=== PATIENT | female | born 2000 | race African-American/Black ===

== ENCOUNTER 2020-01-07 17:14 | Emergency (ER) | payer MEDICAID, OTHER ==
[~2020-01-07] VITALS: Ht 162.6 cm; Wt 70.3 kg
--- NOTE | 2020-01-07 17:46 | NUR ---
PT BIB RA C/O HAND TREMORS WHILE AT PSYCHOLOGIST APPOINTMENT, PT IS AAOX3 NON VERBAL DEF, NOT IN RESPIRATORY DISTRESS, HOOKED TO MONITOR, KEPT RESTED AND COMFORTABLE, WILL CONTINUE TO MONITOR.
--- NOTE | 2020-01-07 17:50 | NUR ---
SEEN AND EXAMINED BY KRITSY RODRIGUEZ
--- NOTE | 2020-01-07 18:00 | NUR ---
ER PHLEB AT BEDSIDE FOR BLOOD DRAW.
[2020-01-07 18:04] LABS: BASOPHILS # (AUTO) 0.1 /CMM (0.0-0.2); BASOPHILS % (AUTO) 0.7 % (0.0-2.0); EOSINOPHILS % (AUTO) 1.1 % (0.0-6.0); HEMATOCRIT 41 % (33-45); HEMOGLOBIN 13.2 g/dL (11.5-14.8); LYMPHOCYTES # (AUTO) 1.5 /CMM (0.8-4.8); LYMPHOCYTES % (AUTO) 19.5 % (20.0-44.0); MEAN CORPUSCULAR HGB CONC 32 g/dl (31.0-36.0); MEAN CORPUSCULAR VOLUME 91 fL (82-100); MONOCYTES # (AUTO) 0.6 /CMM (0.1-1.30); MONOCYTES % (AUTO) 8.3 % (2.0-12.0); NEUTROPHILS # (AUTO) 5.2 /CMM (1.8-8.9); NEUTROPHILS % (AUTO) 70.4 % (43.0-81.0); PLATELET COUNT (AUTO) 284 /CMM (150-450); RED BLOOD CELL COUNT(AUTO) 4.56 MIL/uL (4.0-5.2); WHITE BLOOD COUNT (AUTO) 7.4 K/uL (4.3-11.0)
[2020-01-07 18:13] LABS: CALCIUM, SERUM 9.1 mg/dL (8.5-10.1); CARBON DIOXIDE 29 mmol/L (21-32); CHLORIDE 103 mmol/L (98-107); CREATININE 0.9 mg/dL (0.6-1.3); GLUCOSE 116 mg/dL (74-106); SODIUM SERUM 139 mmol/L (136-145); UREA NITROGEN, BLOOD 13 mg/dL (7-18)
[2020-01-07 18:18] LABS: ALANINE AMINOTRANSFERASE 46 U/L (12-78); ALBUMIN 3.8 g/dL (3.4-5.0); ALCOHOL, BLOOD < 3 mg/dL (0-0); ALKALINE PHOSPHATASE 64 U/L (46-116); ASPARTATE AMINOTRANSFERASE 26 U/L (15-37); BILIRUBIN,TOTAL 0.1 mg/dL (0.2-1.0); SALICYLATE 2.1 mg/dL (2.8-20.0); TOTAL PROTEIN, SERUM 8.4 g/dL (6.4-8.2)
[2020-01-07 18:19] LABS: ACETAMINOPHEN 0 ug/ml (10-30)
[2020-01-07 18:24] LABS: APPEARANCE,URINE Clear (CLEAR); BILIRUBIN,URINE Negative (NEGATIVE); BLOOD, URINE Trace-intact Ery/uL (NEGATIVE); COLOR,URINE Yellow (YELLOW); KETONES,URINE Negative (NEGATIVE); LEUKOCYTE ESTERASE ,URINE Small (NEGATIVE); NITRITE, URINE Negative (NEGATIVE); PROTEIN,URINE Negative (NEGATIVE); UGLUCOSE Negative (NEGATIVE); UROBILINOGEN,URINE 0.2 EU/dL (0.2)
--- NOTE | 2020-01-07 18:30 | NUR ---
URINE SPECIMEN COLLECTED AND SENT TO LAB.
[2020-01-07 18:33] LABS: BACTERIA,URINE Few /HPF (None Seen); SQUAMOUS EPITHELIAL CELL,UR Few /HPF (None Seen); WBC,URINE TOO NUMEROUS TO COUN /HPF (0-3)
[2020-01-07] MEDS ORDERED: NITROFURANTOIN/NITROFURAN MAC 100 MG CAPSULE ONE (18:46)
--- NOTE | 2020-01-07 18:54 | NUR ---
CALLED [facility] FOR EVMANUEL.
[2020-01-07] MEDS ORDERED: NITROFURANTOIN/NITROFURAN MAC 100 MG CAPSULE PO ONE (19:00)
--- NOTE | 2020-01-07 19:13 | NUR ---
REPORT GIVEN TO DANILO RAMÍREZ FOR CK.
--- NOTE | 2020-01-07 22:27 | NUR ---
PT ACCEPTED TO [facility] BY DR VARELA, UNIT 2. # FOR REPORT [phone]
--- NOTE | 2020-01-07 22:37 | NUR ---
Gustavo andrade in ED - 01/07/20 at 2316 by BAILEY REPORT GIVEN TO JOSE M CARRASCO AT [facility] FOR CK.
--- NOTE | 2020-01-07 22:39 | NUR ---
CALLED [facility] FOR TRANSPORT [facility] #[id number]
[2020-01-07] MEDS ORDERED: ACETAMINOPHEN ES 500 MG TABLET ONE (23:06)
--- NOTE | 2020-01-07 23:16 | NUR ---
REPORT GIVEN TO CHAPITO CARRASCO FOR CK.
--- NOTE | 2020-01-07 23:24 | NUR ---
[facility] 0030
[2020-01-07] MEDS ORDERED: ACETAMINOPHEN ES 500 MG TABLET PO ONE (23:30)
[2020-01-07 23:57] VITALS: BP 139/75
--- NOTE | 2020-01-08 00:24 | NUR ---
REPORT GIVEN TO [facility] FOR CK. AND TRANSPORT RESPONSIBILITIES.
[2020-01-08] MEDS ORDERED: diphenhydrAMINE HCL 25 MG CAPSULE ONE (00:30)
[2020-01-08] MEDS ORDERED: diphenhydrAMINE HCL 25 MG CAPSULE PO ONE (01:00)
== END 2020-01-08 00:37 | disposition other institution (70) ==
LOC: ER 17:16
DX: R45.851 Suicidal ideations (principal); N39.0 Urinary tract infection, site not specified; G40.909 Epilepsy, unspecified, not intractable, without status epilepticus; R94.31 Abnormal electrocardiogram [ECG] [EKG]
CPT/HCPCS: 36415; 80048; 80076; 80305; 80307; 80329; 81001; 84703; 85025; 87086; 93005; 99285; G0480; Q0163; 81000-TC

== ENCOUNTER 2020-01-09 09:25 | Emergency (ER) | payer MEDICAID, OTHER ==
[~2020-01-09] VITALS: Ht 144.8 cm; Wt 58.1 kg
--- NOTE | 2020-01-09 09:31 | NUR ---
[id number] FRM SCHVN C/O "CHEST DISCOMFORT" AND "SOB." TO ER BED 10, HOOKED TO MONITOR, CHANGED TO HOSP GOWN, WARM BLANKET PROVIDED. AWAITING MD LACKEY. 1:1 SITTER AT BEDSIDE
--- NOTE | 2020-01-09 09:32 | NUR ---
DR TO AT BEDSIDE
[2020-01-09 09:56] LABS: BASOPHILS % (AUTO) 0.7 % (0.0-2.0); EOSINOPHILS % (AUTO) 1.1 % (0.0-6.0); HEMATOCRIT 42 % (33-45); HEMOGLOBIN 13.5 g/dL (11.5-14.8); LYMPHOCYTES # (AUTO) 1.5 /CMM (0.8-4.8); LYMPHOCYTES % (AUTO) 30.1 % (20.0-44.0); MEAN CORPUSCULAR HGB CONC 32 g/dl (31.0-36.0); MEAN CORPUSCULAR VOLUME 91 fL (82-100); MONOCYTES # (AUTO) 0.5 /CMM (0.1-1.30); NEUTROPHILS # (AUTO) 2.8 /CMM (1.8-8.9); NEUTROPHILS % (AUTO) 58.1 % (43.0-81.0); PLATELET COUNT (AUTO) 270 /CMM (150-450); RED BLOOD CELL COUNT(AUTO) 4.55 MIL/uL (4.0-5.2); WHITE BLOOD COUNT (AUTO) 4.9 K/uL (4.3-11.0)
[2020-01-09 10:05] LABS: CALCIUM, SERUM 9.3 mg/dL (8.5-10.1); CARBON DIOXIDE 30 mmol/L (21-32); CHLORIDE 103 mmol/L (98-107); GLUCOSE 83 mg/dL (74-106); SODIUM SERUM 139 mmol/L (136-145); UREA NITROGEN, BLOOD 11 mg/dL (7-18)
--- NOTE | 2020-01-09 12:08 | NUR ---
TEXTED DR. TAVARES FOR MRI APPROVAL.
--- NOTE | 2020-01-09 12:13 | NUR ---
MRI DOWN TODAY, MIGHT TAKE A DAY OR TWO TO FIX THE MACHINE, MADE AWARE
--- NOTE | 2020-01-09 12:23 | NUR ---
PATIENT WAS ABLE TO STAND UP WITH SMALL STEPS. ALSO VERBALIZED "NO PAIN" MD MADE AWARE.
[2020-01-09] MEDS ORDERED: LORAZEPAM INJ 2 MG/ML VIAL ONE (12:28)
[2020-01-09] MEDS ORDERED: LORAZEPAM INJ 2 MG/ML VIAL IV ONE (12:30)
[2020-01-09] MEDS ORDERED: HYDROCODONE/APAP 5/325MG 1 EACH TABLET PO ONE (13:30)
[2020-01-09] MEDS ORDERED: HYDROCODONE/APAP 5/325MG 1 EACH TABLET ONE (14:45)
[2020-01-09] MEDS ORDERED: IOHEXOL-350 100 ML VIAL IV ONE (16:16)
[2020-01-09] MEDS ORDERED: CT SWABBABLE VALVE TRANS SET 1 EA INFUS.SET MC ONE (16:16)
[2020-01-09] MEDS ORDERED: IV NS 0.9% 250 ML IV ONE (16:16)
--- NOTE | 2020-01-09 16:40 | NUR ---
WHEELED OUT VIA JEN FOR CTA
--- NOTE | 2020-01-09 17:46 | NUR ---
MOTHER LOREN HEATH CALLED AND LEFT # [phone]
--- NOTE | 2020-01-09 18:41 | NUR ---
CALLED [facility] FOR UPDATE TO SEE IF PT WILL BE ACCEPTED BACK AFTER SENDING PATIENT TO US. SPOKE WITH SAM AND SAID TO CALL REPORT AFTER 1930. THEN WE CAN SEND THE PATIENT. [facility] [phone].
--- NOTE | 2020-01-09 19:23 | NUR ---
REPORT GIVEN TO DARRELL CARRASCO FOR CK
--- NOTE | 2020-01-09 20:27 | NUR ---
REPORT GIVEN TO JOSE M CARRASCO AT [facility] FOR CK.
--- NOTE | 2020-01-09 20:41 | NUR ---
[facility] CALLED FOR [facility] #[id number] ETA ~[phone]
--- NOTE | 2020-01-09 21:42 | NUR ---
REPORT GIVEN TO TRANSPORT TEAM FOR CK. AND TRANSFERRING RESPONSIBILITIES.
[2020-01-09 21:43] VITALS: BP 134/75
== END 2020-01-09 21:43 | disposition home or self-care (01) ==
LOC: ER 09:26
DX: R07.89 Other chest pain (principal); R51 Headache; G40.909 Epilepsy, unspecified, not intractable, without status epilepticus
CPT/HCPCS: 36415; 70450; 71045; 71275; 72128; 72131; 80048; 84484; 84703; 85025; 85378; 93005 ×2; 96372; 99285; J2060; J7050; Q9967

== ENCOUNTER 2020-01-09 23:20 | Emergency (ER) | payer OTHER ==
[~2020-01-09] VITALS: Ht 147.3 cm; Wt 58.1 kg
--- NOTE | 2020-01-09 23:49 | NUR ---
PATIENT CAME TO ER BED 11 C/O NUMBNESS ON BOTH LEGS. PATIENT DENIES SUICIDAL IDEATION. STRONG AND EQUAL PEDAL PULSES BILATERALLY. ABLE TO FEEL SESNSATIONS ON BOTH LOWER EXTREMITIES. AAOX4. NO SOB. BREATHING EVENLY AND UNLABORED ON ROOM AIR. CONNECTED TO MONITOR.
[2020-01-09 23:53] VITALS: BP 119/75
--- NOTE | 2020-01-10 00:56 | NUR ---
[facility] CALLED FOR TRANSPORT #[id number] ETA [phone]
--- NOTE | 2020-01-10 02:58 | NUR ---
PATIENT IS AMBULATORY WITH STEADY GAIT.
--- NOTE | 2020-01-10 03:06 | NUR ---
Patient discharged to home in stable condition. Written and verbal after care instructions given. Patient verbalizes understanding of instruction.
--- NOTE | 2020-01-10 03:13 | NUR ---
MOTHER, VIANEY WOODWARD CALLED REGARDING PATIENT'S 12MINUTE ETA TOWARDS HOME ADDRESS.
== END 2020-01-10 03:15 | disposition home or self-care (01) ==
LOC: ER 23:32
DX: R20.2 Paresthesia of skin (principal); H91.8X9 Other specified hearing loss, unspecified ear; F32.9 Major depressive disorder, single episode, unspecified; G40.909 Epilepsy, unspecified, not intractable, without status epilepticus

== ENCOUNTER 2020-04-23 13:14 | Emergency (ER) | payer OTHER ==
[~2020-04-23] VITALS: Ht 154.9 cm; Wt 68.0 kg
--- NOTE | 2020-04-23 13:20 | NUR ---
PT BIBRA FROM [facility], PER REPORT NOTED SEIZURE WHILE WALKING THE HALLWAY. NO HEAD AND ORAL TRAUMA REPORTED. PT WAS GIVEN VERSED PRIOR TO TRANSPORT. PLACED ON MONITOR. STABLE VITALS. PT IS NON VERBAL CLINICAL FELLOW. AWAITING MD LACKEY.
--- NOTE | 2020-04-23 13:25 | NUR ---
IVB LINE STARTED BLOOD DRAWN AND SENT TO LAB.
[2020-04-23 13:52] LABS: BASOPHILS % (AUTO) 0.5 % (0.0-2.0); EOSINOPHILS % (AUTO) 1.6 % (0.0-6.0); HEMATOCRIT 42 % (33-45); HEMOGLOBIN 13.2 g/dL (11.5-14.8); LYMPHOCYTES # (AUTO) 2.1 /CMM (0.8-4.8); LYMPHOCYTES % (AUTO) 40.1 % (20.0-44.0); MEAN CORPUSCULAR HGB CONC 32 g/dl (31.0-36.0); MEAN CORPUSCULAR VOLUME 91 fL (82-100); MONOCYTES # (AUTO) 0.5 /CMM (0.1-1.30); MONOCYTES % (AUTO) 9.9 % (2.0-12.0); NEUTROPHILS # (AUTO) 2.6 /CMM (1.8-8.9); NEUTROPHILS % (AUTO) 47.9 % (43.0-81.0); PLATELET COUNT (AUTO) 237 /CMM (150-450); RED BLOOD CELL COUNT(AUTO) 4.57 MIL/uL (4.0-5.2); WHITE BLOOD COUNT (AUTO) 5.4 K/uL (4.3-11.0)
[2020-04-23] MEDS ORDERED: LEVE100023 PO (13:59)
[2020-04-23] MEDS ORDERED: SERT50TA12 PO (13:59)
[2020-04-23] MEDS ORDERED: GABA-532 PO (13:59)
--- NOTE | 2020-04-23 14:02 | NUR ---
DR HILLS AT BEDSIDE FOR EVAL.
[2020-04-23 14:04] LABS: ALBUMIN 3.7 g/dL (3.4-5.0); BILIRUBIN,DIRECT 0.1 mg/dL (0.0-0.2); BILIRUBIN,TOTAL 0.2 mg/dL (0.2-1.0); CALCIUM, SERUM 9.2 mg/dL (8.5-10.1); CREATININE 0.8 mg/dL (0.6-1.3); POTASSIUM 4.2 mmol/L (3.5-5.1); TOTAL PROTEIN, SERUM 8.2 g/dL (6.4-8.2)
[2020-04-23] MEDS: LEVETIRACETAM (500MG) 1,000 MG in IV NS 0.9% 100 ML IV SCH ×2 (14:30→19:55)
[2020-04-23 15:06] LABS: PHENYTOIN (DILANTIN) 0.8 ug/ml (10.0-20.0)
--- NOTE | 2020-04-23 16:55 | NUR ---
BRICK EXTRUDER OPERATOR WILL CALL US IN 20 MINUTES
--- NOTE | 2020-04-23 17:13 | NUR ---
DR RASHID FROM [facility] CALLED AND SPOKE WITH DR HILLS REGARDING TX
[2020-04-23] MEDS: LORAZEPAM INJ 2 MG/ML VIAL IV ONE ×2 (18:15→19:30)
--- NOTE | 2020-04-23 18:15 | NUR ---
PT NOTED HAVING SEIZURE, DR HILLS MADE AWARE, ATIVAN 2MG IVP GIVEN. PT PLACED ON NON REBREATHER MASK. WILL CLOSELY MONITOR.
[2020-04-23] MEDS ORDERED: LORAZEPAM INJ 2 MG/ML VIAL ONE ×3 (18:16→23:48)
--- NOTE | 2020-04-23 18:49 | NUR ---
PT NOW AWAKE, ALREADY MAKING NEEDS KNOWN USING PEN AND PAPER.
--- NOTE | 2020-04-23 19:23 | NUR ---
REPORT GIVEN TO POLY CARRASCO FOR CK.
--- NOTE | 2020-04-23 19:25 | NUR ---
PT NOTED HAVING SEIZURE, MD AT BEDSIDE. PT'S GIVEN 2MG ATIVAN IV PER MD ORDER.
--- NOTE | 2020-04-23 19:29 | NUR ---
dr. villa speaking to dr. maravilla on-call neurology
[2020-04-23] MEDS ORDERED: FOSPHENYTOIN SODIUM PE 100 MG/2 ML VIAL IV ONE (19:30)
--- NOTE | 2020-04-23 19:31 | NUR ---
PT ALERT, WROTE ON PAPER "I AM CONFUSED"
--- NOTE | 2020-04-23 19:35 | NUR ---
MD CHEN AT BEDSIDE
--- NOTE | 2020-04-23 19:37 | NUR ---
COVID SWAB SENT TO LAB
--- NOTE | 2020-04-23 19:38 | NUR ---
CALLED PHARMACY FOR HUNTER
--- NOTE | 2020-04-23 19:38 | NUR ---
Gustavo andrade in [facility] - 04/23/20 at 1938 by IRENE CALLED PHARMACY FOR HUNTER
--- NOTE | 2020-04-23 19:58 | NUR ---
PT AAOX4. IN BED RESTING. VSS.
[2020-04-23] MEDS ORDERED: LORAZEPAM INJ 2 MG/ML VIAL IV PRN (20:30)
[2020-04-23] MEDS ORDERED: MAG HYDROX/AL HYDROX/SIMETH 30 ML UDC PO PRN (20:30)
[2020-04-23] MEDS ORDERED: ONDANSETRON HCL/PF 4 MG/2 ML VIAL IVP PRN (20:30)
[2020-04-23] MEDS ORDERED: MAGNESIUM HYDROXIDE 30 ML UDC PO PRN (20:30)
[2020-04-23] MEDS ORDERED: ACETAMINOPHEN 325 MG TABLET PO PRN (20:30)
[2020-04-23] MEDS ORDERED: HYDROCODONE/APAP 5/325MG TABLET PO PRN (20:30)
[2020-04-23] MEDS ORDERED: MORPHINE SULFATE INJ 2 MG/ML DISP.SYRIN IV PRN (20:30)
--- NOTE | 2020-04-23 20:57 | NUR ---
PT PROVIDED WITH FOOD.
--- NOTE | 2020-04-23 21:32 | NUR ---
PT ACCEPTED AT [facility] ACCEPTING MD RASHID PT WILL GO TO ROOM [id number] (5e) TRANSPORT AUTH [id number]
[2020-04-23] MEDS ORDERED: SERTRALINE HCL 50 MG TABLET PO SCH (22:00)
--- NOTE | 2020-04-23 22:20 | NUR ---
RESTING COMFORTBALY. VSS.
--- NOTE | 2020-04-23 22:30 | NUR ---
TRANSPORT CALLED ([facility]) ETA 0200.
--- NOTE | 2020-04-23 22:53 | NUR ---
REPORT GIVEN TO RICHARD CARRASCO FOR CK
--- NOTE | 2020-04-23 23:51 | NUR ---
[facility] CALLED ([facility]) ETA 30MIN.
[2020-04-24] MEDS: LORAZEPAM INJ 2 MG/ML VIAL IV ONE
--- NOTE | 2020-04-24 | NUR ---
PT NOTED HAVING ANOTHER SEIZURE, 2MG IVP ATIVAN GIVE. PT BACK TO NORMAL WITHIN 2 MINS.
[2020-04-24 00:55] VITALS: BP 124/71
--- NOTE | 2020-04-24 00:57 | NUR ---
REPORT GIVEN TO YESIKA PATEL. PT TRANSFERED.
[2020-04-24 06:50] LABS: THYROID STIMULATING HORMONE 2.214 uIU/mL (0.358-3.74)
[2020-04-24 06:58] LABS: APPEARANCE,URINE SL CLOUDY (CLEAR); BILIRUBIN,URINE NEGATIVE (NEGATIVE); BLOOD, URINE NEGATIVE Ery/uL (NEGATIVE); COLOR,URINE YELLOW (YELLOW); KETONES,URINE NEGATIVE (NEGATIVE); LEUKOCYTE ESTERASE ,URINE MODERATE (NEGATIVE); NITRITE, URINE NEGATIVE (NEGATIVE); PROTEIN,URINE NEGATIVE (NEGATIVE); UGLUCOSE NEGATIVE (NEGATIVE); UROBILINOGEN,URINE 0.2 EU/dL (0.2)
[2020-04-24 07:09] LABS: RBC,URINE 0-2 /HPF (0-2)
[2020-04-24 07:10] LABS: BACTERIA,URINE Many /HPF (None Seen); SQUAMOUS EPITHELIAL CELL,UR Few /HPF (None Seen)
[2020-04-24] MEDS ORDERED: GABAPENTIN 100 MG CAPSULE PO SCH (09:00)
[2020-04-24 14:17] LABS: MAGNESIUM 2.1 mg/dL (1.8-2.4); PHOSPHORUS 3.4 mg/dL (2.5-4.9)
== END 2020-04-24 01:07 | disposition short-term general hospital (02) ==
LOC: ER 13:14
DX: G40.909 Epilepsy, unspecified, not intractable, without status epilepticus (principal); R42 Dizziness and giddiness; R53.1 Weakness; Z96.21 Cochlear implant status; H91.3 Deaf nonspeaking, not elsewhere classified; F20.9 Schizophrenia, unspecified; I10 Essential (primary) hypertension
CPT/HCPCS: 36415 ×2; 70450; 80048; 80061; 80076; 80185; 80305; 81001; 83036; 83735; 84100; 84443; 84703; 85025; 87081; 87086; 87426; 96365; 96366; 96375; 96376 ×2; 99285; C9803; J1953 ×2; J2060 ×3; J7030 ×2; 81000-TC

== ENCOUNTER 2020-11-22 18:45 | Emergency (ER) | payer OTHER ==
[~2020-11-22] VITALS: Ht 154.9 cm; Wt 65.8 kg
[~2020-11-22 18:45] MED LIST: GABA-532 PO; LEVE100023 PO; SERT-438 PO
--- NOTE | 2020-11-22 19:01 | NUR ---
BRAULIO WAGNER AT BEDSIDE
--- NOTE | 2020-11-22 19:01 | NUR ---
[id number], c/o dysuria x 3 days 01/17 pain scale, to ER bed 11, hooked to monitor, changed to hosp gown, warm blanket provided. awaiting MD huffman
--- NOTE | 2020-11-22 19:06 | NUR ---
urine sample collected and sent to lab
--- NOTE | 2020-11-22 19:17 | NUR ---
REPORT GIVEN TO DARRELL CARRASCO FOR CK
[2020-11-22 19:55] LABS: BILIRUBIN,URINE SMALL (NEGATIVE); COLOR,URINE YELLOW (YELLOW); LEUKOCYTE ESTERASE ,URINE Negative (NEGATIVE); NITRITE, URINE Negative (NEGATIVE); PROTEIN,URINE Negative (NEGATIVE); UGLUCOSE Negative (NEGATIVE); UROBILINOGEN,URINE 0.2 EU/dL (0.2)
[2020-11-22 19:58] LABS: BACTERIA,URINE Rare /HPF (None Seen); RBC,URINE NONE SEEN /HPF (0-2); SQUAMOUS EPITHELIAL CELL,UR Few /HPF (None Seen); WBC,URINE NONE SEEN /HPF (0-3)
[2020-11-22 20:29] VITALS: BP 123/64
--- NOTE | 2020-11-22 20:29 | NUR ---
Patient discharged to home in stable condition. Written and verbal after care instructions given. Patient verbalizes understanding of instruction. ambulatory with a steady gait
== END 2020-11-22 20:30 | disposition home or self-care (01) ==
LOC: ER 18:50
DX: R30.0 Dysuria (principal); G40.909 Epilepsy, unspecified, not intractable, without status epilepticus; H91.90 Unspecified hearing loss, unspecified ear; Z79.899 Other long term (current) drug therapy
CPT/HCPCS: 81001; 84703-TC